=== PATIENT | male | born 1955 | race Caucasian/White ===

== ENCOUNTER 2018-10-12 18:23 | Emergency (ER) | payer BC ==
[2018-10-12] MEDS ORDERED: cloNIDine 0.1 MG TAB ONE (18:56)
[2018-10-12 19:56] LABS: Carbon Dioxide 14 mmol/L (23-31); Chloride 109 mmol/L (98-107); Potassium 5.3 mmol/L (3.5-5.1); Sodium 136 mmol/L (136-145)
[2018-10-12 19:57] LABS: Anion Gap 18 mmol/L (10-20); BUN (Urea Nitrogen) 90 mg/dL (8.4-25.7); Calc. Creatinine Clearance 0 mL/min (70-130); Calcium 9.9 mg/dL (7.8-10.44); Estimated GFR-MDRD 11; Glucose 92 mg/dL (80-115)
[2018-10-12] MEDS ORDERED: Lorazepam 2 MG/ML VIAL ONE (20:08)
[2018-10-12 20:13] LABS: ALT (SGPT) 11 U/L (8-55); Albumin 4.3 g/dL (3.4-4.8); Alkaline Phosphatase 86 U/L (40-150); Bilirubin, Total 0.4 mg/dL (0.2-1.2); Globulin 3.7 g/dL (2.4-3.5); Magnesium 1.9 mg/dL (1.6-2.6)
[2018-10-12 20:17] LABS: Bilirubin Negative (Negative); Blood, Urine Large (Negative); Clarity Slightly Cloudy (Clear); Glucose, Urine (Dipstick) Negative (Negative); Leukocyte Small (Negative); Nitrite Negative (Negative); Protein, Urine (Dipstick) 30 mg/dL (Neg-Trace); Urobilinogen 0.2 mg/dL (0.2-1.0)
[2018-10-12 20:20] LABS: AST (SGOT) 16 U/L (5-34)
[2018-10-12 20:21] LABS: Bacteria/HPF 2+ HPF (None Seen); RBC/HPF GREATER THAN 50-TNTC HPF (0-3); Specific Gravity, Urine 1.007 (1.002-1.036); WBC/HPF 21-50 HPF (0-3)
[2018-10-12 20:46] LABS: #Basophils 0.1 thou/uL (0.0-0.2); #Eosinphils 0.2 thou/uL (0.0-0.7); #Lymphocytes 2.7 thou/uL (1.20-3.40); #Monocytes 0.7 thou/uL (0.11-0.59); #Neutrophils 9.8 thou/uL (1.40-6.50); %Basophils 0.9 % (0.0-1.0); %Eosinophils 1.3 % (0.0-10.0); %Lymphocytes 19.7 % (21.0-51.0); %Monocytes 5.2 % (0.0-10.0); %Neutrophils 72.9 % (42.0-75.0); Mean Corpuscular HGB CONC 34.1 g/dL (32.0-36.0); Mean Corpuscular Hemoglobin 33.1 pg (27.0-31.0); Mean Corpuscular Volume 97.1 fL (78.0-98.0); Mean Platelet Volume 7.7 fL (7.4-10.4); Platelet Count 288 thou/uL (130-400); RBC Distribution Width 12.5 % (11.5-14.5); Red Blood Cell (RBC) Count 3.93 mill/uL (4.70-6.10); White Blood Cell (WBC) Count 13.5 thou/uL (4.8-10.8)
--- NOTE | 2018-10-12 21:13 | CT ---
CT ABDOMEN AND PELVIS WITHOUT CONTRAST: Technique: Multiple contiguous axial images were obtained through the abdomen and pelvis without IV e nhancement. Indications: Left abdominal pain. FINDINGS: Lung bases clear. Liver, spleen, pancreas unremarkable. There is bilateral hydronephrosis. Bilateral ureteral stents are in place and appear adequately posit ioned. The bladder is minimally distended. Bladder wall appears mildly prominent. Etiology for the hy dronephrosis is not apparent on the exam. Small bowel loops appear normal. There is left ostomy which appears to represent left colostomy with evidence of prior resection of the lower left colon and sigmoid. No free fluid. Aorta normal caliber. No evidence of abscess. IMPRESSION: Bilateral hydronephrosis with bilateral ureteral stents. Mildly contracted urinary bladder with evide nce of mildly thickened wall. POS: JASPREET
[2018-10-12] MEDS ORDERED: Acetaminophen 500 MG TAB ONE (21:54)
== END 2018-10-12 22:36 | disposition short-term general hospital (02) ==
LOC: MADERS 18:23
DX: I10 Essential (primary) hypertension (principal); N17.9 Acute kidney failure, unspecified; E87.5 Hyperkalemia; B20 Human immunodeficiency virus [HIV] disease; N13.2 Hydronephrosis with renal and ureteral calculous obstruction; Z79.899 Other long term (current) drug therapy
CPT/HCPCS: 36415; 74176; 81003; 81015; 83605; 83735; 85025; 87040; 96365; 96366; 96375; J1642; J2060